=== PATIENT | female | born 1970 | race African-American/Black ===

== ENCOUNTER 2022-08-16 18:38 | Emergency (ER) | payer OTHER, SELFPAY ==
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
[2022-08-16 19:00] VITALS: BP 153/91; PULSE 96; RESP 18; TEMP 36.7; O2SAT 100
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
--- NOTE | 2022-08-16 20:12 | PC.NURSE ---
PT IS AWAITING RADIOLOGY FOR RESULTS AT THIS TIME. NAD NOTED. PT IS TALKING WITH SIG OTHER WITHOUT DISTRESS. WILL CONTINUE TO MONITOR.
--- NOTE | 2022-08-16 20:59 | PC.NURSE ---
PT IS TIRED OF WAITING ON RAD RESULTS. PROVIDER IS AWARE. THE PAX SYSTEM IS DOWN, RAD IS UNABLE TO READ IMAGES AT THIS TIME. PT IS AWARE OF RISKS TO LEAVING WITHOUT RESULTS. ADVISED PT PROVIDER WILL CONTACT HER WITH RESULTS TONIGHT OR IN THE MORNING, IF SX WORSEN TO GO TO THE ER. PT REPORTS SHE JUST FEELS LIKE EVERYTHING IS GETTING TIGHT AND HURTS.'
[2022-08-16 21:01] VITALS: BP 148/78; PULSE 78; RESP 18; O2SAT 98
== END 2022-08-16 20:55 | disposition home or self-care (01) ==
PROVIDERS: Emergency Provider Nurse Practitioner Family
DX: S29.012A Strain of muscle and tendon of back wall of thorax, initial encounter (principal); V49.50XA Passenger injured in collision with unspecified motor vehicles in traffic accident, initial encounter; R07.89 Other chest pain; S16.1XXA Strain of muscle, fascia and tendon at neck level, initial encounter
CPT/HCPCS: 72040; 72072; 99213; G0463